=== PATIENT | female | born 1955 | race Caucasian/White ===

== ENCOUNTER 2017-11-29 09:29 | Outpatient (CLI) | payer BC ==
[~2017-11-29 09:29] MED LIST: Iopamidol 370 76% 125 ML VIAL FS ONE
--- NOTE | 2017-11-29 12:25 | CT ---
ABDOMEN CT WITH AND WITHOUT CONTRAST: Date: 11/29/17 HISTORY: Arthritis and liver function tests were performed. Abnormal liver function tests. COMPARISON: None. TECHNIQUE: Abdomen CT is performed with and without IV contrast. Coronal reformatted images are submitted for in terpretation. FINDINGS: Lung bases are clear. Heart size is normal. No pericardial effusion. The descending thoracic aorta an d abdominal aorta have a normal caliber. No periaortic fat stranding. Intra and extrahepatic portal vein is patent. The liver, spleen, pancreas, and adrenal glands have appropriate enhancement. There is a gallstone. No CT evidence of cholecystitis. No gastrohepatic, retrocrural, or periportal lymphadenopathy. No mesenteric mass, lymphadenopathy, free air, or free fluid. Symmetric enhancement of the kidneys. Bilaterally, no obstructive uropathy. Visualized alimentary canal is grossly unremarkable. IMPRESSION: 1. Appropriate attenuation and enhancement of the liver. No obvious masses. 2. Cholelithiasis without evidence of cholecystitis. POS: [facility]
== END 2017-11-29 09:30 | disposition home or self-care (01) ==
LOC: SCSCT 09:29
PROVIDERS: ATTEND Internal Medicine Rheumatology
DX: R94.5 Abnormal results of liver function studies (principal); R74.0 Nonspecific elevation of levels of transaminase and lactic acid dehydrogenase [LDH]; M06.09 Rheumatoid arthritis without rheumatoid factor, multiple sites; K80.20 Calculus of gallbladder without cholecystitis without obstruction
CPT/HCPCS: 74170; 82565